=== PATIENT | female | born 1995 | race African-American/Black ===

== ENCOUNTER 2017-03-17 14:44 | Emergency (ER) | payer SELFPAY ==
[~2017-03-17] VITALS: Ht 162.6 cm; Wt 72.7 kg
[2017-03-17 16:56] LABS: ASPARTATE AMINO TRANSFERASE 18 U/L (15-37); BLOOD UREA NITROGEN 7 mg/dL (7-18)
[2017-03-17 16:59] VITALS: BP 124/67
== END 2017-03-17 17:43 | disposition home or self-care (01) ==
LOC: ED 15:59
DX: R10.30 Lower abdominal pain, unspecified (principal)
CPT/HCPCS: 36415; 76830; 80053; 81003; 83690; 84703; 85025; 99285